=== PATIENT | male | born 1970 | race Two or more races ===

== ENCOUNTER → 2024-06-18 | Outpatient (CLI) | payer MEDICAID, SELFPAY ==
--- NOTE | 2024-06-18 15:30 | XR_ITS ---
Examination: CT maxillofacial, without intravenous contrast. 2-D sagittal reconstructions. 3-D reconstructions. Date and time of exam:June 18, 2024 at 1600 hrs. Indications: Congestion sinus pressure and pain months CTDI: vol (mGy):24.1 DLP: (mGycm):485 Technique: Multiple axial images of maxillofacial region, 3.0 mm slice thickness. 2-D sagittal and coronal reconstructions. 3-D reconstructions. Low dose protocols were performed. One or more of the following dose reduction techniques were used; automated exposure control, adjustment of the mA and/or KV according to patient size, use of iterative reconstruction technique. Findings: Mucosal thickening 1 to 2 mm in the frontal air cells Moderate mucosal thickening ethmoid air cells no occlusion ostiomeatal complexes Mucosal thickening up to 4 mm in the maxillary antra Significant hypertrophy inferior nasal turbinates Trace mucosal thickening sphenoid air cells The optic globes exhibit symmetry Negative for otitis media Impression: Chronic pansinusitis
== END | disposition home or self-care (01) ==
PROVIDERS: Referring Provider Obstetrics & Gynecology; Visit Provider Obstetrics & Gynecology
DX: J32.4 Chronic pansinusitis (principal)
CPT/HCPCS: 70486